=== PATIENT | male | born 1935 | race Two or more races ===

== ENCOUNTER 2022-05-22 15:12 | Inpatient (IN) | payer MEDICARE, BC ==
[~2022-05-22] VITALS: Ht 177.8 cm; Wt 63.0 kg
--- NOTE | 2022-05-22 15:12 | NUR ---
SENT HERE BY DR LAYNE DUE TO BRADYCARDIA,HR-30'S, EKG ALSO SHOWED COMPLETE HEART BLOCK. DENIES ANY SYMPTOMS. ALSO C/O BLE SWELLING. TO ER BED 2, HOOKED TO GRANT COORDINATOR, CHANGED TO HOSP GOWN, WARM BLANKET PROVIDED. PATIENT AAOx4. BREATHING EVEN AND UNLABORED. DR CAMPBELL AT BEDSIDE
--- NOTE | 2022-05-22 15:31 | NUR ---
rapid covid swab done and sent to lab
[2022-05-22 15:39] LABS: BASOPHILS # (AUTO) 0.1 K/uL (0.0-0.2); BASOPHILS % (AUTO) 0.6 % (0.0-2.0); EOSINOPHILS % (AUTO) 1.7 % (0.0-6.0); HEMATOCRIT 44 % (39-51); HEMOGLOBIN 14.4 g/dL (13.5-17.5); LYMPHOCYTES # (AUTO) 1.9 K/uL (0.8-4.8); LYMPHOCYTES % (AUTO) 21.8 % (20.0-44.0); MEAN CORPUSCULAR HGB CONC 32 g/dl (31.0-36.0); MEAN CORPUSCULAR VOLUME 89 fL (80-96); MONOCYTES # (AUTO) 0.9 K/uL (0.1-1.30); MONOCYTES % (AUTO) 10.3 % (2.0-12.0); NEUTROPHILS # (AUTO) 5.7 K/uL (1.8-8.9); NEUTROPHILS % (AUTO) 65.6 % (43.0-81.0); PLATELET COUNT (AUTO) 138 K/uL (150-450); RED BLOOD CELL COUNT(AUTO) 4.95 MIL/uL (4.5-6.0); WHITE BLOOD COUNT (AUTO) 8.7 K/uL (4.3-11.0)
[2022-05-22] MEDS ORDERED: METO25CA PO (15:48)
[2022-05-22] MEDS ORDERED: LISI-768 PO (15:48)
[2022-05-22] MEDS ORDERED: WARF6TAB49 PO (15:48)
[2022-05-22] MEDS ORDERED: CARB100T51 PO (15:48)
[2022-05-22 15:52] LABS: ALANINE AMINOTRANSFERASE 20 U/L (12-78); ALBUMIN 3.6 g/dL (3.4-5.0); ALKALINE PHOSPHATASE 74 U/L (46-116); ASPARTATE AMINOTRANSFERASE 15 U/L (15-37); BILIRUBIN,DIRECT 0.2 mg/dL (0.0-0.2); BILIRUBIN,TOTAL 1.1 mg/dL (0.2-1.0); CALCIUM, SERUM 8.9 mg/dL (8.5-10.1); CARBON DIOXIDE 26 mmol/L (21-32); CHLORIDE 107 mmol/L (98-107); GLUCOSE 109 mg/dL (74-106); POTASSIUM 3.6 mmol/L (3.5-5.1); SODIUM SERUM 142 mmol/L (136-145); TOTAL PROTEIN, SERUM 6.8 g/dL (6.4-8.2); UREA NITROGEN, BLOOD 22 mg/dL (7-18)
--- NOTE | 2022-05-22 16:07 | NUR ---
MADE AWARE OF HIGH SYSTOLIC PRESSURE OF 214.
--- NOTE | 2022-05-22 16:18 | NUR ---
PANEL ON-CALL PAGED
--- NOTE | 2022-05-22 16:27 | NUR ---
INFORMED MD OF ELEVATED SYSTOLIC PRESSURE. WILL ORDER BP MED. WILL CARRY OUT ORDERED
[2022-05-22] MEDS ORDERED: ENALAPRILAT INJ (1.25 MG/ML) 1.25 MG/ML VIAL IV ONE (16:29)
--- NOTE | 2022-05-22 16:30 | NUR ---
EPIC PAGED, AWAITING HOSPITALIST CALL BACK.
[2022-05-22] MEDS: ENALAPRILAT INJ (1.25 MG/ML) 1.25 MG/ML VIAL IV PRN (16:34)
[2022-05-22] MEDS ORDERED: ZOLPIDEM TARTRATE 5 MG TABLET PO PRN (17:00)
[2022-05-22] MEDS ORDERED: Z GUARD REMEDY 4 OZ OINT TP PRN (17:00)
[2022-05-22] MEDS ORDERED: MAG HYDROX/AL HYDROX/SIMETH 30 ML UDC PO PRN (17:00)
[2022-05-22] MEDS ORDERED: ONDANSETRON HCL/PF 4 MG/2 ML VIAL IVP PRN (17:00)
[2022-05-22] MEDS ORDERED: MAGNESIUM HYDROXIDE 30 ML UDC PO PRN (17:00)
--- NOTE | 2022-05-22 17:01 | NUR ---
DR LAYNE AT BEDSIDE
--- NOTE | 2022-05-22 17:45 | NUR ---
INFORMED DR ELIAS OF ELEVATED SYSTOLIC PRESSURE.
[2022-05-22] MEDS ORDERED: hydrALAZINE HCL IV 20 MG VIAL IV PRN (18:00)
--- NOTE | 2022-05-22 18:03 | NUR ---
GOT BED 252.
[2022-05-22] MEDS ORDERED: hydrALAZINE HCL IV 20 MG VIAL ONE (18:04)
--- NOTE | 2022-05-22 18:13 | NUR ---
REPORT GIVEN TO TOREY ROSENTHAL OF ICU. TRANSFER PATIENT AFTER SHIFT CHANGE PER HOUSE SUP
--- NOTE | 2022-05-22 19:30 | NUR ---
RECEIVED REPORT FROM ARIADNA APARICIO. PATIENT IS AAOX3. CAME WITH CC OF BRADYCARDIA. ADMITTED TO ICU FOR HEART BLOCK; WAITING FOR AVAILABLE ROOM. PATIENT HAS PERIPHERAL LINE ON RIGHT AC G18, LEFT HAND G20. POSITIONED PATIENT COMFORTABLY. ATTACHED TO MONITOR. VITALS CHECKED. REPORT GIVEN BY ARIADNA APARICIO TO ARIADNA URBINA. TO TRANSFER PATIENT.
--- NOTE | 2022-05-22 20:00 | NUR ---
THREADING MACHINE FEEDER AUTOMATIC. ADMISSION. RECEIVED THE PT REST IN BED. AWAKE, ALERT, FOLLOW COMMANDS. MANUFACTURING SCHEDULER SHOWING S JERALD.HOB ELEVATED. MARIANNE HAND PIV SALINE LOCK. WILL CONTINUE TO MONITOR VITALS.
--- NOTE | 2022-05-22 20:10 | NUR ---
TRANSFERRED PATIENT TO ICU VIA STRETCHER
[2022-05-22] MEDS: hydrALAZINE HCL 25 MG TABLET PO SCH (21:13)
[2022-05-22] MEDS: LISINOPRIL (20MG) 20 MG TABLET PO SCH (21:15)
[2022-05-22 22:00] VITALS: BP 155/88
[2022-05-22 22:45] VITALS: BP 171/62
[2022-05-22 23:00] VITALS: BP 148/68
[2022-05-22 23:15] VITALS: BP 187/68
[2022-05-22 23:30] VITALS: BP 187/79
[2022-05-22 23:46] VITALS: BP 162/68
[2022-05-23] VITALS (34 sets, daily range): BP systolic 121–185; BP diastolic 41–135
[2022-05-23] MEDS: hydrALAZINE HCL IV 20 MG VIAL IV PRN ×3 (00:25→17:03)
--- NOTE | 2022-05-23 00:33 | NUR ---
ELECTROLESS PLATER. PT IS NPO. POSSIBLE PACEMAKER PLACEMENT
--- NOTE | 2022-05-23 04:30 | NUR ---
SERVICENOW ADMINISTRATOR. AM CARE GIVEN. PT SLEPT WELL. DURING NIGHT. HOB ELEVATED. PT IS NPO. HOUSEKEEPING SUPERVISOR SHOWING COMPLETE HEART BLOCK. PT IS ON ROOM AIR. SAT 98%. NOACUTE DISTRESS NOTED. TURN AND REPOSITION Q2H. WILL CONTINUE TO MONITOR VITALS.
[2022-05-23 04:44] LABS: BASOPHILS % (AUTO) 0.3 % (0.0-2.0); EOSINOPHILS % (AUTO) 1.4 % (0.0-6.0); HEMATOCRIT 41 % (39-51); HEMOGLOBIN 13.6 g/dL (13.5-17.5); LYMPHOCYTES # (AUTO) 1.6 K/uL (0.8-4.8); LYMPHOCYTES % (AUTO) 18.9 % (20.0-44.0); MEAN CORPUSCULAR HGB CONC 33 g/dl (31.0-36.0); MEAN CORPUSCULAR VOLUME 89 fL (80-96); MONOCYTES # (AUTO) 0.9 K/uL (0.1-1.30); NEUTROPHILS # (AUTO) 5.9 K/uL (1.8-8.9); NEUTROPHILS % (AUTO) 69.4 % (43.0-81.0); PLATELET COUNT (AUTO) 132 K/uL (150-450); RED BLOOD CELL COUNT(AUTO) 4.67 MIL/uL (4.5-6.0); WHITE BLOOD COUNT (AUTO) 8.5 K/uL (4.3-11.0)
[2022-05-23 04:57] LABS: CALCIUM, SERUM 8.4 mg/dL (8.5-10.1); CARBON DIOXIDE 23 mmol/L (21-32); CHLORIDE 110 mmol/L (98-107); CREATININE 0.8 mg/dL (0.6-1.3); GLUCOSE 99 mg/dL (74-106); MAGNESIUM 2.1 mg/dL (1.8-2.4); PHOSPHORUS 2.9 mg/dL (2.5-4.9); POTASSIUM 3.5 mmol/L (3.5-5.1); SODIUM SERUM 141 mmol/L (136-145); UREA NITROGEN, BLOOD 20 mg/dL (7-18)
[2022-05-23 05:07] LABS: THYROID STIMULATING HORMONE 0.449 uIU/mL (0.358-3.74)
--- NOTE | 2022-05-23 07:36 | NUR ---
PT RECIVED AWAKE AND ALERT NO S/S OF DISTRESS bp HI 160/112 WAS GIVEN HYDRALAZINE @ 6AM. HERE FOR THROMBOCYTOPENIA AND COMPLETE HEART BLOCK WITH A RATE OF 42. PT HAS ONE IV CATHETER AC #18 PATENTS AND FLUSHES WELL. IS SCHEDULED TODAY FOR PACEMAKER PLACEMENT SURGEON CAME AND MET WITH PT. PHOB ELVATED TO 30 DEGREES BED LOCKED BED ALRM IS ON
[2022-05-23] MEDS: hydrALAZINE HCL 25 MG TABLET PO SCH ×3 (08:11→16:20)
[2022-05-23] MEDS: PANTOPRAZOLE 40 MG TABLET.DR PO SCH (08:11)
[2022-05-23] MEDS: CARBAMAZEPINE 100 MG TAB.CHEW PO SCH ×2 (08:12→16:19)
[2022-05-23] MEDS: LISINOPRIL (20MG) 20 MG TABLET PO SCH (08:12)
[2022-05-23] MEDS ORDERED: CARBAMAZEPINE XR 100 MG TAB.SR.12H PO SCH (09:00)
[2022-05-23] MEDS ORDERED: LISINOPRIL (5MG) 5 MG TABLET PO SCH (09:00)
[2022-05-23] MEDS: ENALAPRILAT INJ (1.25 MG/ML) 1.25 MG/ML VIAL IV PRN ×2 (09:11→17:17)
[2022-05-23] MEDS ORDERED: ANESTHESIA TRAY IN PYXIS 1 EA TRAY MC ONE (10:57)
[2022-05-23] MEDS ORDERED: LIDOCAINE 1% INJ 50 ML MDV IJ ONE (10:57)
[2022-05-23] MEDS ORDERED: IOHEXOL 0 ML IV ONE (11:14)
--- NOTE | 2022-05-23 12:30 | NUR ---
OR STAFF ARRIVED TO TAKE PT TO PROCEDURE
[2022-05-23] MEDS ORDERED: BACITRACIN ZINC OINT PACKET 1 EA PACKET TP ONE (13:53)
[2022-05-23] MEDS ORDERED: hydrALAZINE HCL IV 20 MG VIAL ONE (14:28)
--- NOTE | 2022-05-23 15:12 | NUR ---
PT RETUNED FROM OR AWAKE AND ALERT ABLE TO ANSWER QUESTIONS AND FOLLOW COMMANDS, VITALS WNL NO COMPLICATION NOTED DURING THE PROCEDURE. PACEMAKER IS CAPTURING WELL AND PACING APPROPRIATELY
[2022-05-23] MEDS: ACETAMINOPHEN 325 MG TABLET PO PRN (15:41)
--- NOTE | 2022-05-23 18:57 | NUR ---
PT IN BED RESTING W/ EYES CLOSED BREATHING EVENLY AND UNLABORED. BEDSIDE MONITOR SHOWING PACED RHYTHM OF 77 BP 156/60. NO URINE SINCE OPERATION 164MLS FOUND ON BLADDER SCAN WILL INDORSE FINDING TO ONCOMING NURSE.
[2022-05-23] MEDS ORDERED: hydrALAZINE HCL 25 MG TABLET PO PRN (19:00)
[2022-05-23] MEDS: CARVEDILOL 12.5 MG TABLET PO SCH (20:02)
--- NOTE | 2022-05-23 20:15 | NUR ---
RN NOTE RECEIVED PT AWAKE, AT BEDSIDE. NOT IN ANY DISTRESS, TOLERATING O2. PT S/P PACEMAKER PLACEMENT, DRESSING CLEAN DRY AND INTACT, NO SIGNS OF INFECTION NOTED. V PACING ON TELE MONITOR HR 79. RESUMED CARDIAC DIET PER MAYO LY. OFFERED FLUIDS TO PT. WILL CONTINUE TO MONITOR. Addendum: 05/24/22 at 0648 by ZAHRAA STREETER RN CORRECTION, RECEIVED PT ON ROOM AIR.
[2022-05-24] VITALS (28 sets, daily range): BP systolic 99–188; BP diastolic 52–134
[2022-05-24] MEDS: hydrALAZINE HCL IV 20 MG VIAL IV PRN ×3 (04:16→14:19)
--- NOTE | 2022-05-24 06:49 | NUR ---
RN NOTE PT TOLERATES ROOM AIR O2 SAT AT 97%. DENIES ANY PAIN OR SOB. NO SIGNS OF DISTRESS. PACEMAKER SITE DRESSING DRY AND INTACT, NO BLEEDING NOTED. V PACING ON TELE MONITOR WITH HR OF NOTED WITH ELEVATED BP, PRN HYDRALAZINE GIVEN. PT URINATE X1. SLEPT WELL AT NIGHT. PT REFUSED AM LABS, EXPLAINED RISK AND BENEFITS, PT WANTS TO DO IT LATER. WILL ENDORSE TO NEXT SHIFT NURSE FOR KELLE. Addendum: 05/24/22 at [address]658 [address] ZAHRAA STREETER RN HR 67
--- NOTE | 2022-05-24 07:30 | NUR ---
PT RECEIVED RESTING WITH EYES CLOSED, BEDSIDE MONITOR SHOW VITALS WNL, NO S/S OF DISTRESS NOTED. ON ROOM AIR SAT IN THE HI 90'S NO S/S OF RESPIRATORY DISTRESS. PT HAS RAC 18# FLUSHES WITH EASE, LFA 20# IN PLACE AND DRESSED NO S/S OF INFILTRATION. PACEMAKER CAPTURING APPROPRIATELY VENTRICULAR RATE. SBP IN THE 150S. BED LOCKED HOB ELEVATED 20 DEGREES
--- NOTE | 2022-05-24 07:51 | NUR ---
PT RECEIVED AWAKE BUT CONFUSED SPEAKING IN ANOTHER LANGUAGE. ON ROOM AIR BREATHING IS EVEN AND WNL NO S/S OF RESPIRATORY DISTRESS. LEILANI PICC PATENT AND SLUGISH TO FLUSHING, LFA #20 FLUSHES WITH EASE NO S/S OF INFILTRATION. BEDSIDE MONITOR SHOWS SR IN THE 60'S. PT ON LEVO DRIP BP KEPT WITHIN ORDERED PARAMETERS. PETERS CATHETER PATENT AND DRAINING YELLOW URINE. BILATERAL WRIST RESTRAIN APPLIED CIRCULATION AND PULSES CHECKED. SLIGHT SACRAL REDNESS. SWALLOW EVAL ORDER HOB ELEVATED. Addendum: 05/24/22 at 1022 by MICHAEL PATEL RN error wrong pt charted on
[2022-05-24] MEDS: PANTOPRAZOLE 40 MG TABLET.DR PO SCH (08:11)
[2022-05-24] MEDS: CARVEDILOL 12.5 MG TABLET PO SCH ×2 (08:11→16:51)
[2022-05-24] MEDS: LISINOPRIL (20MG) 20 MG TABLET PO SCH ×2 (08:12→16:51)
[2022-05-24] MEDS: CARBAMAZEPINE 100 MG TAB.CHEW PO SCH ×2 (08:14→16:54)
[2022-05-24] MEDS: hydrALAZINE HCL 50 MG TABLET PO SCH ×3 (08:42→16:51)
[2022-05-24 09:19] LABS: BASOPHILS % (AUTO) 0.2 % (0.0-2.0); EOSINOPHILS % (AUTO) 1.9 % (0.0-6.0); HEMATOCRIT 46 % (39-51); HEMOGLOBIN 14.8 g/dL (13.5-17.5); LYMPHOCYTES # (AUTO) 1.5 K/uL (0.8-4.8); LYMPHOCYTES % (AUTO) 13.1 % (20.0-44.0); MEAN CORPUSCULAR HGB CONC 33 g/dl (31.0-36.0); MEAN CORPUSCULAR VOLUME 90 fL (80-96); MONOCYTES # (AUTO) 1.3 K/uL (0.1-1.30); MONOCYTES % (AUTO) 11.1 % (2.0-12.0); NEUTROPHILS # (AUTO) 8.5 K/uL (1.8-8.9); NEUTROPHILS % (AUTO) 73.7 % (43.0-81.0); PLATELET COUNT (AUTO) 144 K/uL (150-450); RED BLOOD CELL COUNT(AUTO) 5.04 MIL/uL (4.5-6.0); WHITE BLOOD COUNT (AUTO) 11.5 K/uL (4.3-11.0)
[2022-05-24 09:39] LABS: CALCIUM, SERUM 8.5 mg/dL (8.5-10.1); CREATININE 1.1 mg/dL (0.6-1.3); MAGNESIUM 2.2 mg/dL (1.8-2.4); PHOSPHORUS 3.3 mg/dL (2.5-4.9); POTASSIUM 3.6 mmol/L (3.5-5.1)
--- NOTE | 2022-05-24 10:15 | NUR ---
STAFF CAME HURL SHAKER TO CHECK PACEMAKER FUNCTION DID NOT FIND ANY DEFICIT
[2022-05-24] MEDS: ENALAPRILAT INJ (1.25 MG/ML) 1.25 MG/ML VIAL IV PRN (10:50)
--- NOTE | 2022-05-24 13:30 | NUR ---
RN NOTE RECEIVED TRANSFER REPORT FROM MICHAEL FROM ICU. PT AWAKE AND ALERT A/OX2. NO SIGNS OF RESPIRATORY DISTRESS OR SOB AT THIS TIME. STABLE ON RA AT 98%. TELE BOX PACING AT 60. IV IN R AC 18 G AND L FOREARM 20G INTACT AND PATENT. SAFETY CHECKS IN PLACE: BED LOCKED, BED IN LOWEST POSITION, CALL LIGHT WITHIN REACH. WILL CONTINUE TO MONITOR.
[2022-05-24] MEDS: ACETAMINOPHEN 325 MG TABLET PO PRN (15:14)
--- NOTE | 2022-05-24 18:56 | NUR ---
RN CLOSING NOTE PT IN BED AWAKE, A/OX2. RESTING COMFORTABLY WITH AT BEDSIDE. PT ABLE TO MAKE NEEDS KNOWN, HELPS HIM WELL. NO SIGNS OF RESPIRATORY DISTRESS OR SOB NOTED. STABLE ON RA. TELE MONITOR READING AV PACE AT 63. IV IN RAC 18G AND YEYO 20G INTACT AND PATENT. NO C/O OF PAIN AT THIS TIME. ALL NEEDS MET, ALL SCHEDULED MEDS GIVEN. SAFETY CHECKS IN PLACE: BED LOCKED, BED IN LOWEST POSITION, CALL LIGHT WITHIN REACH. WILL ENDORSE TO GRAILS WEB APPLICATION DEVELOPER FOR KELLE.
--- NOTE | 2022-05-24 20:00 | NUR ---
RECEIVED PATIENT IN BED, ALERT/ORIENTED X2, STABLE ON ROOM AIR, NO COMPLAIN OF PAIN, NO CHEST PAIN, AT THE BEDSIDE, KEPT SAFE, WILL CONTINUE TO MONITOR.
[2022-05-25] VITALS: BP 151/58
[2022-05-25 00:40] VITALS: BP 138/62
[2022-05-25 04:00] VITALS: BP_SYST 149; BP_DIAS 85; BP_DIAS 88
--- NOTE | 2022-05-25 06:05 | NUR ---
Alert/oriented x2, stable on room air, no complain of pain, VS stable, SBP < 150, s/p pacemaker placement 05/23/22, V pacing, SR with BBB. Uses urinal to void, needs assistance getting up on the side of bed. Monitor BP, if SBP > 150 give hydralazine PRN, follow up with Dr. Du next week, cleared by cardio for discharge.
[2022-05-25 06:23] LABS: BASOPHILS % (AUTO) 0.3 % (0.0-2.0); EOSINOPHILS % (AUTO) 3.1 % (0.0-6.0); HEMATOCRIT 45 % (39-51); HEMOGLOBIN 14.7 g/dL (13.5-17.5); LYMPHOCYTES # (AUTO) 1.6 K/uL (0.8-4.8); LYMPHOCYTES % (AUTO) 15.2 % (20.0-44.0); MEAN CORPUSCULAR HGB CONC 33 g/dl (31.0-36.0); MEAN CORPUSCULAR VOLUME 89 fL (80-96); MONOCYTES # (AUTO) 1.3 K/uL (0.1-1.30); MONOCYTES % (AUTO) 11.8 % (2.0-12.0); NEUTROPHILS # (AUTO) 7.5 K/uL (1.8-8.9); NEUTROPHILS % (AUTO) 69.6 % (43.0-81.0); PLATELET COUNT (AUTO) 141 K/uL (150-450); RED BLOOD CELL COUNT(AUTO) 5.04 MIL/uL (4.5-6.0); WHITE BLOOD COUNT (AUTO) 10.8 K/uL (4.3-11.0)
[2022-05-25 06:42] LABS: CALCIUM, SERUM 8.1 mg/dL (8.5-10.1); CREATININE 1.1 mg/dL (0.6-1.3); MAGNESIUM 2.1 mg/dL (1.8-2.4); PHOSPHORUS 2.7 mg/dL (2.5-4.9); POTASSIUM 3.8 mmol/L (3.5-5.1)
--- NOTE | 2022-05-25 07:20 | NUR ---
PHYSICIAN IN PRIVATE PRACTICE OPENING NOTES: RECEIVED PT IN BED ASLEEP, EASILY AROUSED WITH STIMULI. NO SOB OR CARDIAC DISTRESS NOTED, AFEBRILE. PATIENT ON VEHICLE SALES PROFESSIONAL WITH CURRENT READING OF A PACING, V PACING, SINUS WITH BBB. IV ACCESS ON RAC G#18, FFA G#20 PATENT, INTACT AND SALINE LOCKED. SAFETY PRECAUTIONS MAINTAINED: BED LOCKED AND IN LOWEST POSITION, SIDE RAILS UP X 2 AND CLL LIGHT IN EASY REACH FOR ASSISTANCE. KEPT RESTED AND COMFORTABLE. WILL MONITOR ACCORDINGLY.
[2022-05-25] MEDS: PANTOPRAZOLE 40 MG TABLET.DR PO SCH (07:38)
[2022-05-25 08:00] VITALS: BP 173/75
[2022-05-25] MEDS: LISINOPRIL (20MG) 20 MG TABLET PO SCH (08:18)
[2022-05-25] MEDS: hydrALAZINE HCL 50 MG TABLET PO SCH ×2 (08:18→12:42)
[2022-05-25] MEDS: CARVEDILOL 12.5 MG TABLET PO SCH (08:19)
[2022-05-25] MEDS: CARBAMAZEPINE 100 MG TAB.CHEW PO SCH (08:19)
--- NOTE | 2022-05-25 09:20 | NUR ---
RN NOTES: INITIAL BP: 173/75, HR 75. BP MORNING MEDS GIVEN, REPEATED HIS BP 136/70, HR 70.
[2022-05-25 12:42] VITALS: BP 113/52
[2022-05-25] MEDS ORDERED: LISI20TA30 PO (13:35)
[2022-05-25] MEDS ORDERED: CARV12.52 PO (13:35)
[2022-05-25] MEDS ORDERED: HYDR-4077 PO (13:35)
[2022-05-25] MEDS ORDERED: PANT40TA49 PO (13:35)
--- NOTE | 2022-05-25 14:20 | NUR ---
SVP OPERATIONS NOTES: DC PATIENT HOME WITH . PATIENT ALERT AND ORIENTED X 4 AND ABLE TO VERBALIZED NEEDS. PATIENT DENIES ANY PAIN AT THIS TIME, NO SOB OR CARDIAC DISTRESS NOTED. DISCHARGE PACKET GIVEN TO PATIENT AND AT BED SIDE. VERBALIZED UNDERSTANDING. FOLLOW UP WITH PCP IN A WEEK AND IN CASE OF EMERGENCY CALL 911 OR GO TO NEAREST HOSPITAL. ALL BELONGINGS CARRIED WITH THE RESIDENT AND SIGNED THE FORM. DEVICE PROCESSING ENGINEER GIVEN TO US WOOD. IV ACCESS REMOVED AND IDENTIFICATION BAND REMOVED. RICARDO GARCIA WHEELED PT IN THE LOBBY. PATIENT LEFT THE UNIT STABLE.
== END 2022-05-25 14:32 | disposition home or self-care (01) | DRG 242 ==
LOC: ER 15:27 → ICU 20:06 → TELE 05-24 13:29
PROVIDERS: ADMIT Student in an Organized Health Care Education/Training Program; ATTEND Student in an Organized Health Care Education/Training Program
PROC: 0JH606Z Insertion of Pacemaker, Dual Chamber into Chest Subcutaneous Tissue and Fascia, Open Approach (ICD-10-PCS; principal; 2022-05-23)
PROC: 02H63JZ Insertion of Pacemaker Lead into Right Atrium, Percutaneous Approach (ICD-10-PCS; 2022-05-23)
PROC: 02HK3JZ Insertion of Pacemaker Lead into Right Ventricle, Percutaneous Approach (ICD-10-PCS; 2022-05-23)
DX: I44.2 Atrioventricular block, complete (principal); I50.31 Acute diastolic (congestive) heart failure; D68.59 Other primary thrombophilia; I11.0 Hypertensive heart disease with heart failure; I16.0 Hypertensive urgency; E86.0 Dehydration; I25.10 Atherosclerotic heart disease of native coronary artery without angina pectoris; Z95.5 Presence of coronary angioplasty implant and graft; Z79.01 Long term (current) use of anticoagulants; Z79.899 Other long term (current) drug therapy; Z20.822 Contact with and (suspected) exposure to COVID-19; R79.89 Other specified abnormal findings of blood chemistry; D69.6 Thrombocytopenia, unspecified; Z86.718 Personal history of other venous thrombosis and embolism; Z98.890 Other specified postprocedural states; Z82.3 Family history of stroke
CPT/HCPCS: 36415; 71045-TC; 80048-TC; 80076-TC; 82962-TC; 83735-TC; 84100-TC; 84443-TC; 84484-TC; 85025-TC; 85730-TC; 87081-TC; 93307-TC; 97116-TC; 97530-TC; C1786; C9803; G0378; J0360; J2704; J3490; J7030; Q9967